=== PATIENT | female | born 1975 | race American Indian/Alaskan Native ===

== ENCOUNTER 2018-10-01 14:12 | Outpatient (CLI) | payer MEDICAID ==
--- NOTE | 2018-10-04 09:41 | XRay Report ---
ROUTINE CHEST, TWO VIEWS: HISTORY: Other mechanical complication surgically created. The trachea, heart, mediastinal contour, lung yang and bony thorax are unremarkable. There is accentuated thoracolumbar kyphosis. A right IJ dual-lumen catheter terminates in the superior right atrium. IMPRESSION: No acute cardiopulmonary process identified.
== END 2018-10-01 14:13 | disposition home or self-care (01) ==
LOC: XRAY 14:12
PROVIDERS: ATTEND Surgery Vascular Surgery
DX: M40.295 Other kyphosis, thoracolumbar region (principal); T82.590A Other mechanical complication of surgically created arteriovenous fistula, initial encounter; I10 Essential (primary) hypertension; E66.01 Morbid (severe) obesity due to excess calories; E78.00 Pure hypercholesterolemia, unspecified; K21.9 Gastro-esophageal reflux disease without esophagitis; E78.5 Hyperlipidemia, unspecified
CPT/HCPCS: 71046

== ENCOUNTER 2019-07-31 05:23 | Emergency (ER) | payer SELFPAY ==
[2019-07-31 05:56] VITALS: BP 168/95
== END 2019-07-31 13:09 | disposition left against medical advice (07) ==
LOC: ED 05:23
DX: R07.89 Other chest pain (principal); R51 Headache; Z53.21 Procedure and treatment not carried out due to patient leaving prior to being seen by health care provider
CPT/HCPCS: 93005; 93010